=== PATIENT | male | born 1990 | race Caucasian/White ===

== ENCOUNTER 2021-07-28 20:11 | Emergency (ER) | payer OTHER ==
[~2021-07-28] VITALS: Ht 165.1 cm; Wt 96.2 kg
[2021-07-28 20:19] VITALS: BP 153/97
--- NOTE | 2021-07-28 20:19 | NUR ---
[facility]
[2021-07-28] MEDS ORDERED: ALBUTEROL 0.083% 2.5 MG/3 ML NEBU INH ONE ×4 (20:28→21:55)
--- NOTE | 2021-07-28 20:28 | NUR ---
SEEN AND EXAMINED BY CHAD
[2021-07-28] MEDS ORDERED: IPRATROPIUM 0.02% 0.5 MG/2.5 ML NEBU INH ONE (20:29)
[2021-07-28] MEDS ORDERED: ALBUTEROL SULFATE/IPRATROPIU 3 ML SOL IH ONE (20:30)
[2021-07-28] MEDS ORDERED: KETOROLAC 30 MG/ML VIAL IM ONE (20:30)
[2021-07-28] MEDS ORDERED: methylPREDNISolone SS 125 MG in WATER STERILE 2 ML IM ONE (20:30)
[2021-07-28] MEDS ORDERED: WATER STERILE 10 ML MC ONE (21:25)
[2021-07-28] MEDS ORDERED: methylPREDNISolone SS 125 MG/2 ML VIAL ONE (21:26)
[2021-07-28] MEDS ORDERED: ALBU0.0912 IH (22:30)
[2021-07-28] MEDS ORDERED: ROBAC PO ×2 (22:30→23:02)
[2021-07-28] MEDS ORDERED: PRED20TA5 PO (22:30)
[2021-07-28] MEDS ORDERED: LEVA0.6318 INH (22:51)
[2021-07-28] MEDS ORDERED: ATRN INH (22:51)
--- NOTE | 2021-07-28 23:01 | NUR ---
Patient discharged with v/s stable. Written and verbal after care instructions ABOUT ASTHMMA given and explained. Patient alert, oriented and verbalized understanding of instructions. Ambulatory with steady gait. All questions addressed prior to discharge. ID band removed. Patient advised to follow up with PMD. Rx of PREDNISONE, LEVALBUTREROL, IPRATROPIUM BROMIDE, ALBUTEROL, GUAIFENESIN WITH CODEINE given. Patient educated on indication of medication including possible reaction and side effects. Opportunity to ask questions provided and answered.
== END 2021-07-28 23:01 | disposition home or self-care (01) ==
LOC: MED 20:11
DX: J45.901 Unspecified asthma with (acute) exacerbation (principal); Q43.1 Hirschsprung's disease; Z98.890 Other specified postprocedural states; Z79.899 Other long term (current) drug therapy
CPT/HCPCS: 71045; 96372; 99284; J1885; J2930; J7613; J7644; Q0092